=== PATIENT | male | born 1955 | race Caucasian/White ===

== ENCOUNTER 2022-12-23 09:57 | Emergency (ER) | payer MEDICARE, SELFPAY ==
--- NOTE | 2022-12-23 10:02 | ED.SKABFB ---
HPI - Skin/Abscess/Foreign Bdy General Chief complaint: Upper Respiratory Infection Stated complaint: Swollen face Time Seen by Provider: 12/23/22 10:01 Source: patient Mode of arrival: ambulatory Limitations: no limitations History of Present Illness HPI narrative: Ramana is a 67-year-old male patient presenting to the clinic today with complaints of left-sided facial swelling, feeling feverish, chills, body aches. He denies any runny nose or congestion. He reports that the swelling started around his right ear and has gradually gotten worse over the past few days. Symptoms have been going on for approximately 4 days. Related Data Home Medications Medication Instructions Recorded Confirmed albuterol sulfate 90 mcg/actuation 2 inh inhalation Q4-6H 12/23/22 12/23/22 aerosol inhaler amlodipine 10 mg tablet 10 mg PO DAILY 12/23/22 12/23/22 aspirin 81 mg capsule 81 mg PO DAILY 12/23/22 12/23/22 atorvastatin 20 mg tablet 20 mg PO DAILY 12/23/22 12/23/22 empagliflozin 25 mg tablet 1 mg PO DAILY 12/23/22 12/23/22 (Jardiance) fluticasone fur. 200 mcg-umeclid 1 inh inhalation DAILY 12/23/22 12/23/22 62.5 mcg-vilant 25 mcg inhalat.powder (Trelegy Ellipta) metformin 500 mg tablet,extended 2 mg PO HS 12/23/22 12/23/22 release 24 hr Allergies Allergy/AdvReac Type Severity Reaction Status Date / Time No Known Allergies Allergy Verified 12/23/22 10:17 Review of Systems Review of Systems: Pertinent positives per HPI. Patient denies any rash, visual changes, dizziness, cough, shortness of breath, chest pain, palpitations, nausea, vomiting, diarrhea, constipation, abdominal pain, or any urinary issues. PMFSH Comments At the time of my signature, I reviewed and agree with the nursing past medical, surgical, social, and family history. There is no relevant family history pertinent to the patient complaint. Exam Narrative: General: Well-developed, well nourished, in no apparent distress Head: Normocephalic, atraumatic, left-sided facial swelling-redness, tenderness, and erythema noted over the right ear, around right eye, and to the right cheek. Eyes: Pupils equally round and reactive to light bilaterally, EOM intact, sclera and conjunctive clear, no discharge, right lid swelling Ears: TMs intact and clear, ear canals clear, no drainage, grossly hearing normal. Nose: Nares patent, no discharge, no inflammation, no sinus tenderness. Mouth: Oral pharynx without lesions or masses, good dentition, MMM. Neck: Supple, trachea midline, no enlargement of anterior or posterior cervical nodes, no thyroid masses or goiter palpable. Cardio: Regular rate and rhythm, s1 and s2 normal, no murmur appreciated. Resp: Clear to auscultation bilaterally, no rhonchi, rales, wheezing or rubs Course Course Emergency Course: Portions of this record may have been created with voice recognition software. Level of Care: Express Care Visit Vital Signs Vital signs: Vital signs reviewed MDM - Skin/Abscess/Foreign Bdy MDM Narrative Medical decision making narrative: At the time of visit patient is resting on the exam table. Patient is currently afebrile. I suspect patient has facial cellulitis. 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 Offered/recommended to send patient to the ER for further evaluation-labs for facial cellulitis and he declined. Rocephin 1 g IM given in the clinic today. Prescription for Augmentin and Bactrim was also prescribed and sent to the pharmacy. Red flag symptoms and ER precautions were reviewed with the patient he voiced understanding. Supportive measures were also reviewed with the patient he voiced understanding of the discharge instructions agrees with the treatment plan. Differential Diagnosis Differential diagnosis: Likely abscess of skin or subcutaneous tissue, cellulitis, insect bites, impetigo and contact dermatitis Discharge Plan Discharge Clinical Impression: Cellulitis of face P
[2022-12-23 10:19] VITALS: BP 148/84; PULSE 92; RESP 16; TEMP 37.2; O2SAT 92
[2022-12-23 10:21] VITALS: BP 148/84; PULSE 92; RESP 16; TEMP 37.2; O2SAT 92
[2022-12-23] MEDS: cefTRIAXone 1 GM, LIDOCAINE HCL 1% LOCAL INJ 2.1 ML IM (10:34)
== END 2022-12-23 10:52 | disposition home or self-care (01) ==
PROVIDERS: Emergency Provider Nurse Practitioner Family
DX: L03.811 Cellulitis of head [any part, except face] (principal); Z79.82 Long term (current) use of aspirin; Z79.84 Long term (current) use of oral hypoglycemic drugs; Z79.899 Other long term (current) drug therapy
CPT/HCPCS: 96372; 99213; G0463; J0696